=== PATIENT | female | born 2000 | race Asian ===

== ENCOUNTER 2021-05-10 20:11 | Emergency (ER) | payer BC ==
[~2021-05-10] VITALS: Ht 160 cm; Wt 87.9 kg
--- NOTE | 2021-05-10 21:12 | PHYS DOC ---
General Adult EDM: Chief Complaint: ALLERGIC REACTION HPI: HPI: "..I think I am allergic to Crabs.. my mom brought from [place]..it could be a red sweater I ve not worn for a while.. " Patient is a 20 year old female who presents with complaints of hives and itching.. Pt. did eat some crabs [place] and wore a red sweater. The were the only new exposures. Patient has hives over her entire body. Patient denies previous allergic reaction except one when she was in middle school. Patient denies any recent travel. No specific ill contacts. Up-to-date with vaccinations. No known other new exposures. Review of Systems: Review of Systems: Constitutional: Denies fever or chills Eyes: Denies change in visual acuity HENT: Complains of nasal congestion and itchy throat Respiratory: Denies cough or shortness of breath Cardiovascular: Denies chest pain or edema GI: Denies abdominal pain, nausea, vomiting, bloody stools or diarrhea : Denies dysuria Musculoskeletal: Denies back pain or joint pain Integument: Complains of hives Neurologic: Denies headache, focal weakness or sensory changes Endocrine: Denies polyuria or polydipsia Lymphatic: Denies swollen glands Psychiatric: Denies depression or anxiety Family History: Family History: Noncontributory to presentation Current Medications: Current Meds: See nursing for home meds Allergies: Allergies: No known allergies prior to this event Physical Exam: PE: Constitutional: Moderate acute distress, non-toxic appearance. [] HENT: Normocephalic, atraumatic, bilateral external ears normal, oropharynx moist, no oral exudates, nose: Turbinates clear rhinorrhea Eyes: PERRLA, EOMI, conjunctiva normal, no discharge. Glasses Neck: Normal range of motion, no tenderness, supple, no stridor. [] Cardiovascular:Heart rate regular rhythm, no murmur [] Lungs & Thorax: Bilateral breath sounds equal apex on auscultation [] Abdomen: Bowel sounds normal, soft, no tenderness, no masses, no pulsatile masses. [] Skin: Warm, dry, no erythema, covered with hives Back: No tenderness, no CVA tenderness. [] Extremities: No tenderness, no cyanosis, no clubbing, ROM intact, no edema. [] Neurologic: Alert and oriented X 3, normal motor function, normal sensory function, no focal deficits noted. [] Psychologic: Affect anxious, judgement normal, mood normal. [] EKG: EKG: [] Radiology/Procedures: Radiology/Procedures: [] Heart Score: C/O Chest Pain: N/A Risk Factors: Risk Factors: DM, Current or recent (<one month) smoker, HTN, HLP, family history of CAD, obesity. Risk Scores: Score 0 - 3: 2.5% MACE over next 6 weeks - Discharge Home Score 4 - 6: 20.3% MACE over next 6 weeks - Admit for Clinical Observation Score 7 - 10: 72.7% MACE over next 6 weeks - Early Invasive Strategies Course & Med Decision Making: Course & Med Decision Making Pertinent Labs and Imaging studies reviewed. (See chart for details) Patient push fluids. Take Tylenol as needed for discomfort. Avoid further intake of seafood especially crab. Take prednisone 50 mg a day for 5 days. Take Pepcid 20 mg twice a day for 10 days. Use MDI 2 puffs 4 times a day for t he next 10 days. Follow-up primary care. Return for any concerns. Pt. reports marked improvement of symptoms at time of discharge. Impression: 1. Allergic Reaction [] Dragon Disclaimer: Dragon Disclaimer: This electronic medical record was generated, in whole or in part, using a voice recognition dictation system. Departure Departure: Referrals: ALEXI BARBOSA SKI TOPPER (PCP) Scripts Famotidine (PEPCID) 20 Mg Tablet 20 MG PO twice a day for hives for 10 Days, TAB Prov: SUSHANT DIETZ MD 05/10/21 Prednisone (PREDNISONE) 50 Mg Tablet 50 MG PO DAILY for hives for 5 Days, #5 TAB Prov: SUSHANT DIETZ MD 05/10/21 Dragon Disclaimer This chart was dictated in whole or in part using Voice Recognition software in a busy, high-work load, and often noisy Emergency Department environment. It may contain unintended and wholly unrecognized errors or omissions. Dragon Disclaimer This chart was dictated in whole or in part using Voice Recognition software in a busy, high-work load, and often noisy Emergency Department environment. It may contain unintended and wholly unrecognized errors or omissions. SUSHANT DIETZ MD May 10, 2021 21:12
[2021-05-10] MEDS: diphenhydrAMINE 50 MG/ML VIAL IVP ONE (21:15)
[2021-05-10] MEDS: MAGNESIUM HYDROXIDE 2,400 MG/30 ML ORAL.SUSP. PO ONE (21:15)
[2021-05-10] MEDS ORDERED: PRED50TA PO (21:24)
[2021-05-10] MEDS ORDERED: FAMO-63 PO (21:24)
[2021-05-10] MEDS ORDERED: MAGNESIUM HYDROXIDE 2,400 MG/30 ML ORAL.SUSP. ONE (21:38)
[2021-05-10] MEDS ORDERED: FAMOTIDINE 20 MG/2 ML VIAL ONE (21:39)
[2021-05-10] MEDS ORDERED: ALBUTEROL SULFATE 8GM INHALER. ONE (21:39)
[2021-05-10] MEDS: ALBUTEROL SULFATE 8GM INHALER. INH ONE (21:43)
[2021-05-10] MEDS: methylPREDNISolone SOD SUCC PF 125 MG/2 ML VIAL. IV ONE (21:48)
[2021-05-10] MEDS: FAMOTIDINE 20 MG/2 ML VIAL IVP ONE (21:49)
[2021-05-10 23:45] VITALS: BP 114/63
== END 2021-05-10 23:51 | disposition home or self-care (01) ==
LOC: ER 20:11
DX: T78.40XA Allergy, unspecified, initial encounter (principal); X58.XXXA Exposure to other specified factors, initial encounter
CPT/HCPCS: 94640; 96374; 96375; 99284; J2930; J3490; 94664